=== PATIENT | male | born 1935 | race Caucasian/White ===

== ENCOUNTER 2018-02-21 11:11 | Outpatient (CLI) | payer MEDICARE, BC ==
--- NOTE | 2018-02-21 14:33 | RAD ---
CERVICAL SPINE RADIOGRAPHS 3 VIEWS: DATE: 02/21/2018. PROVIDED CLINICAL HISTORY: Cervical radiculopathy. FINDINGS: No comparisons. Changes of anterior fusion are noted from C5 through C7. No evidence for hardware l oosening or migration. Degenerative disk changes are prominent at C4-5. There is no evidence for ab normal translational motion with flexion and extension. No prevertebral soft tissue swelling apparen t. IMPRESSION: No evidence for abnormal translational motion. Postoperative and degenerative changes as above. POS: [facility]
--- NOTE | 2018-02-21 16:32 | CT ---
CT CERVICAL SPINE 02/21/18 PROVIDED CLINICAL HISTORY: Cervical radiculopathy. FINDINGS: No comparisons. There is anterolisthesis of C3 on C4, minimal. There is otherwise normal cervical ali gnment. Changes of anterior fusion are seen from C5 through C7. There is no evidence for hardware loo sening or migration. Prominent disc space narrowing and end plate degenerative change at C4-5. Verteb ral body heights are maintained. No concerning lytic or blastic lesions. No evidence for fracture. At C2-3, bilateral facet arthritis with no significant central canal or foraminal narrowing apparent by CT. At C3-4, there is prominent right sided facet arthritis and uncinate process hypertrophy producing se theodore right foraminal narrowing. No significant central canal or left foraminal narrowing apparent. At C4-5, broad based disc osteophyte complex and uncinate process hypertrophy. Bilateral facet arthri tis. There is severe left foraminal narrowing. There is no significant right foraminal narrowing. The re is effacement of the ventral spinal canal with potential for mass effect upon the ventral cord due to disc material which does not appear to represent herniation. At C5-6, there is no significant central canal or foraminal narrowing apparent. At C6-67, there is mild right foraminal narrowing on the basis of uncinate process hypertrophy. No si gnificant left foraminal narrowing or central canal narrowing apparent. At C7-T1, there is no significant central canal or foraminal narrowing apparent. IMPRESSION: Postoperative and degenerative changes with areas of canal and foraminal narrowing as above. POS: [facility]
== END 2018-02-21 11:12 | disposition home or self-care (01) ==
LOC: TBSIIMAG 11:11
PROVIDERS: ATTEND Neurological Surgery
DX: M47.22 Other spondylosis with radiculopathy, cervical region (principal); M48.02 Spinal stenosis, cervical region; M99.81 Other biomechanical lesions of cervical region; Z98.1 Arthrodesis status
CPT/HCPCS: 72040; 72125